=== PATIENT | male | born 1945 | race Caucasian/White ===

== ENCOUNTER 2016-09-10 09:16 | Outpatient (CLI) | payer MEDICARE ==
[2016-09-10 10:08] LABS: Hemoglobin A1c 5.3 % (4.0-6.0)
[2016-09-10 10:20] LABS: ALT (SGPT) 13 U/L (0-55); AST (SGOT) 11 U/L (5-34); Alkaline Phosphatase 55 U/L (40-150); Anion Gap 13 mmol/L (10-20); BUN (Urea Nitrogen) 16 mg/dL (8.4-25.7); Bilirubin, Direct 0.3 mg/dL (0.1-0.3); Bilirubin, Total 0.8 mg/dL (0.2-1.2); Calc. Creatinine Clearance 0 mL/min (70-130); Calcium 9.5 mg/dL (7.8-10.44); Carbon Dioxide 27 mmol/L (23-31); Cardiac Risk 3.9 (Less than 4.5); Chloride 104 mmol/L (98-107); Cholesterol 141 mg/dL (< 200 Desired); Estimated GFR-MDRD 87; Glucose 132 mg/dL (83-110); HDL Cholesterol 36 mg/dL (>60 Neg Risk); LDL Cholesterol, Calculated 89 mg/dL; Potassium 4.2 mmol/L (3.5-5.1); Protein, Total 6.5 g/dL (5.8-8.1); Sodium 140 mmol/L (136-145); Triglycerides 79 mg/dL (Less than 150)
[2016-09-10 10:54] LABS: #Basophils 0.1 thou/uL (0.0-0.2); #Eosinphils 0.1 thou/uL (0.0-0.7); #Lymphocytes 1.4 thou/uL (1.20-3.40); #Monocytes 0.5 thou/uL (0.11-0.59); #Neutrophils 6.8 thou/uL (1.40-6.50); %Basophils 0.7 % (0.0-1.0); %Eosinophils 1.4 % (0.0-10.0); %Lymphocytes 15.3 % (21.0-51.0); %Monocytes 6.1 % (0.0-10.0); %Neutrophils 76.5 % (42.0-75.0); Anisocytosis SLIGHT = 6-15 cells (100X) (0-5/hpf); Hemoglobin 15.7 g/dL (14.0-18.0); MDiff Complete? YES; Mean Corpuscular HGB CONC 33.4 g/dL (32.0-36.0); Mean Corpuscular Hemoglobin 34.7 pg (27.0-31.0); Mean Corpuscular Volume 104.2 fl (80.0-94.0); Mean Platelet Volume 7.1 fL (7.4-10.4); PLT Morphology Comment Appears Adequate; Platelet Count 179 thou/uL (130-400); RBC Distribution Width 12.5 % (11.5-14.5); Red Blood Cell (RBC) Count 4.52 mill/uL (4.70-6.10); White Blood Cell (WBC) Count 8.9 thou/uL (4.8-10.8)
== END 2016-09-10 09:17 | disposition home or self-care (01) ==
LOC: MADLABBHPM 09:16
PROVIDERS: ATTEND Family Medicine
DX: E03.9 Hypothyroidism, unspecified (principal); E11.9 Type 2 diabetes mellitus without complications
CPT/HCPCS: 36415; 80048; 80061; 80076; 83036; 84443; 85025

== ENCOUNTER 2016-12-18 09:50 | Outpatient (CLI) | payer MEDICARE ==
[2016-12-18 10:48] LABS: ALT (SGPT) 13 U/L (8-55); AST (SGOT) 12 U/L (5-34); Albumin 3.7 g/dL (3.4-4.8); Alkaline Phosphatase 60 U/L (40-150); Anion Gap 12 mmol/L (10-20); BUN (Urea Nitrogen) 16 mg/dL (8.4-25.7); Bilirubin, Direct 0.3 mg/dL (0.1-0.3); Bilirubin, Total 0.7 mg/dL (0.2-1.2); Calc. Creatinine Clearance 0 mL/min (70-130); Calcium 9.1 mg/dL (7.8-10.44); Carbon Dioxide 27 mmol/L (23-31); Cardiac Risk 3.4 (Less than 4.5); Chloride 104 mmol/L (98-107); Cholesterol 141 mg/dl (< 200 Desired); Estimated GFR-MDRD 82; Glucose 127 mg/dL (83-110); HDL Cholesterol 41 mg/dL (>60 Neg Risk); LDL Cholesterol, Calculated 86 mg/dL; Potassium 4.1 mmol/L (3.5-5.1); Protein, Total 6.6 g/dL (5.8-8.1); Sodium 139 mmol/L (136-145); Triglycerides 68 mg/dL (Less than 150)
[2016-12-18 11:15] LABS: #Basophils 0.1 thou/uL (0.0-0.2); #Eosinphils 0.1 thou/uL (0.0-0.7); #Lymphocytes 1.3 thou/uL (1.20-3.40); #Monocytes 0.5 thou/uL (0.11-0.59); #Neutrophils 5.9 thou/uL (1.40-6.50); %Basophils 1.2 % (0.0-1.0); %Eosinophils 1.6 % (0.0-10.0); %Lymphocytes 15.9 % (21.0-51.0); %Monocytes 6.2 % (0.0-10.0); %Neutrophils 75.2 % (42.0-75.0); Hemoglobin 16.5 g/dL (14.0-18.0); Mean Corpuscular Hemoglobin 35.7 pg (27.0-31.0); Mean Corpuscular Volume 104.9 fl (80.0-94.0); Mean Platelet Volume 6.9 fL (7.4-10.4); PLT Morphology Comment Appears Adequate; Platelet Count 163 thou/uL (130-400); RBC Distribution Width 11.9 % (11.5-14.5); Red Blood Cell (RBC) Count 4.62 mill/uL (4.70-6.10); White Blood Cell (WBC) Count 7.9 thou/uL (4.8-10.8)
[2016-12-18 13:18] LABS: Manual Diff?? YES
== END 2016-12-18 09:51 | disposition home or self-care (01) ==
LOC: MADLABBHPM 09:50
PROVIDERS: ATTEND Family Medicine
DX: E78.5 Hyperlipidemia, unspecified (principal); E11.9 Type 2 diabetes mellitus without complications
CPT/HCPCS: 36415; 80048; 80061; 80076; 83036; 85025

== ENCOUNTER 2019-11-04 09:03 | Outpatient (CLI) | payer MEDICARE ==
--- NOTE | 2019-11-04 09:42 | RAD ---
Exam:2 views left hip HISTORY: Pain COMPARISON: None FINDINGS: Contour of the femoral head is maintained. Hip joint spaces preserved. No fracture. Visuali zed sacrum and bony pelvis do not demonstrate any acute abnormality. IMPRESSION: No significant degenerative change.
== END 2019-11-04 09:04 | disposition home or self-care (01) ==
LOC: MADRAD 09:03
PROVIDERS: ATTEND Family Medicine
DX: M25.552 Pain in left hip (principal)

== ENCOUNTER 2020-09-11 11:35 | Outpatient (CLI) | payer OTHER, MEDICARE ==
[2020-09-11 12:05] LABS: ALT (SGPT) 16 U/L (8-55); AST (SGOT) 13 U/L (5-34); Alkaline Phosphatase 62 U/L (40-110); Anion Gap 12 mmol/L (10-20); BUN (Urea Nitrogen) 20 mg/dL (8.4-25.7); Bilirubin, Total 0.9 mg/dL (0.2-1.2); Calc. Creatinine Clearance 0 mL/min (70-130); Calcium 9.1 mg/dL (7.8-10.44); Carbon Dioxide 26 mmol/L (23-31); Chloride 105 mmol/L (98-107); Cholesterol 137 mg/dl (< 200 Desired); Globulin 2.8 g/dL (2.4-3.5); Glucose 120 mg/dL (83-110); HDL Cholesterol 46 mg/dL (>60 Neg Risk); LDL Cholesterol, Calculated 81 mg/dL; Potassium 3.9 mmol/L (3.5-5.1); Protein, Total 6.8 g/dL (5.8-8.1); Sodium 139 mmol/L (136-145); Triglycerides 52 mg/dL (Less than 150)
[2020-09-11 12:22] LABS: Band 1 % (5-11); Eosinophils 2 % (0-10); Hemoglobin 14.9 g/dL (14.0-18.0); Lymphocytes 15 % (21-51); MDiff Complete? YES; Mean Corpuscular HGB CONC 33.5 g/dL (32.0-36.0); Mean Corpuscular Hemoglobin 35.2 pg (27.0-31.0); Mean Corpuscular Volume 105.1 fL (78.0-98.0); Mean Platelet Volume 8.3 fL (7.4-10.4); Monocytes 5 % (0-10); Neutrophil 75 % (42-75); Platelet Count 190 thou/uL (130-400); Platelet Morphology Comment Appears Adequate; RBC Distribution Width 12.5 % (11.5-14.5); RBC Morphology Normal; Reactive Lymphocytes 2 % (0-10); Red Blood Cell (RBC) Count 4.24 mill/uL (4.70-6.10)
[2020-09-11 16:55] LABS: Hemoglobin A1c 5.2 % (4.0-6.0)
== END 2020-09-11 11:36 | disposition home or self-care (01) ==
LOC: MADLAB 11:35
PROVIDERS: ATTEND Family Medicine
DX: E11.9 Type 2 diabetes mellitus without complications (principal); E78.5 Hyperlipidemia, unspecified; I10 Essential (primary) hypertension
CPT/HCPCS: 36415; 80053; 80061; 83036; 84443; 85025